=== PATIENT | female | born 1950 | race Caucasian/White ===

== ENCOUNTER 2024-02-22 13:22 | Emergency (ER) | payer MEDICARE ==
[~2024-02-22] VITALS: Ht 167.6 cm; Wt 95.0 kg
[2024-02-22] VITALS (13 sets, daily range): BP systolic 161–218; BP diastolic 59–174
[2024-02-22 15:01] LABS: BASO% 0.6 % (0-3); EOS% 3.5 % (0-8); HEMATOCRIT 41.2 % (37.0-47.0); HEMOGLOBIN 13.6 g/dl (12.0-16.0); IMMATURE GRANULOCYTES 0.3 % (0.0-5.0); LYMPH% 28.7 % (15-41); MEAN CORPUSCULAR HGB 30.7 pG CALC (26.0-32.0); NEUT# 5.05 thou/uL (2.00-7.15); NEUT% 58.9 % (42-76); RED BLOOD COUNT 4.43 mill/uL (4.20-5.60); RED CELL DISTRI WIDTH 12.9 % (11.5-15.5)
[2024-02-22] MEDS ORDERED: LABETALOL HCL 20 MG/ 4 ML CARTRG IV ONE (15:05)
[2024-02-22 15:17] LABS: ALBUMIN 4.2 g/dL (3.2-5.0); ALKALINE PHOSPHATASE 118 u/l (38-126); ANION GAP 11 (6-22 (CALC)); BILIRUBIN, TOTAL 0.5 mg/dL (0.02-1.3); BUN 20 mg/dL (8-23); BUN/CREATININE RATIO 32 (12-20 (CALC)); CARBON DIOXIDE 28 mmol/l (22-30); CHLORIDE 106 mmol/l (95-108); CREATININE 0.6 mg/dL (0.5-1.0); ESTIMATED GFR 95 ML/MIN (>=90 (CALC)); POTASSIUM 4.4 mmol/l (3.5-5.1); SGOT/AST 25 u/l (9-36); SODIUM 140 mmol/l (137-146); TOTAL PROTEIN 7.8 g/dL (6.3-8.2)
[2024-02-22] MEDS ORDERED: VIBRAMYCIN100 M2 PO (17:07)
[2024-02-22] MEDS ORDERED: METFORMIN HCL500 M2 PO (17:07)
[2024-02-22] MEDS ORDERED: HYZAAR1 TA1 PO (17:07)
[2024-02-22] MEDS ORDERED: DOXYCYCLINE HYCLATE 100 MG/CAP PO ONE (17:15)
[2024-02-22] MEDS ORDERED: hydrALAZINE HCL 20 MG/ML VIAL(1 ML) IV ONE (17:35)
== END 2024-02-22 19:12 | disposition home or self-care (01) ==
LOC: ED 13:22
PROVIDERS: Nurse Practitioner
DX: L03.116 Cellulitis of left lower limb (principal); L03.115 Cellulitis of right lower limb; E11.65 Type 2 diabetes mellitus with hyperglycemia; T38.3X6A Underdosing of insulin and oral hypoglycemic [antidiabetic] drugs, initial encounter; Z91.120 Patient's intentional underdosing of medication regimen due to financial hardship